=== PATIENT | male | born 1995 | race Hispanic/Latino ===

== ENCOUNTER 2021-10-21 14:48 | Outpatient (CLI) | payer BC ==
[~2021-10-21 14:48] MED LIST: Magnevist 469MG/ML 20 ML VIAL ONE
== END 2021-10-21 14:49 | disposition home or self-care (01) ==
LOC: MRI 14:48
PROVIDERS: ATTEND Specialist
DX: G40.A09 Absence epileptic syndrome, not intractable, without status epilepticus (principal)
CPT/HCPCS: 70553; A9579